=== PATIENT | male | born 1970 ===

== ENCOUNTER → 2017-07-25 | Emergency (ER) | payer OTHER ==
[~2017-07-25] VITALS: Ht 185.4 cm; Wt 90.7 kg
[~2017-07-25] MED LIST: CEFUROXIME500 MG PO; CLOPIDOGREL BIS75 MG; DIAZEPAM1 EAC1; DOLOGESIC 500-1 EACH PO; LOSARTAN POTASS50 MG; SINGULAIR10 MG
== END | disposition home or self-care (01) ==
LOC: ER 21:29
DX: M54.89 Other dorsalgia (principal)

== ENCOUNTER 2024-07-15 05:45 | Day surgery (SDC) | payer OTHER ==
[2024-07-15] MEDS ORDERED: fentaNYL CITRATE 50 MCG/ML AMPUL IV PUSH ONE (08:45)
[2024-07-15] MEDS ORDERED: MIDAZOLAM HCL 2 MG/2 ML VIAL IV ONE (08:45)
[2024-07-15] MEDS ORDERED: DIPHENHYDRAMINE HCL 50 MG/ML VIAL 1ML IV ONE (08:45)
== END 2024-07-15 10:40 | disposition home or self-care (01) ==
LOC: AMB-ENDOS 05:45
PROVIDERS: ATTEND Colon & Rectal Surgery
DX: D12.3 Benign neoplasm of transverse colon (principal); K63.5 Polyp of colon; K57.30 Diverticulosis of large intestine without perforation or abscess without bleeding